=== PATIENT | female | born 2000 | race African-American/Black ===

== ENCOUNTER 2020-03-04 13:13 | Emergency (ER) | payer OTHER ==
[~2020-03-04] VITALS: Ht 160 cm; Wt 54.0 kg
--- NOTE | 2020-03-04 14:01 | PHYS DOC ---
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 EMS states that they started doing CPR at work on her. Patient arrives she is very tearful and she states that she feels that. When she is asked if she feels safe at home she states sometimes. She states sometimes her dad can be mean to her. She denies any kind of abuse. Her mom currently lives in [place] still. She states that she has had the syncopal episodes 2 other times at home. She states that she received her first Covid vaccine this past Sunday. Upon arrival she had so me tingling in her hands that has since gone away. Patient denies any other past medical history. She denies numbness or tingling, headache, vision changes, dizziness, chest pain, shortness of air, urinary symptoms, back pain, extremity pain, joint pain, abdominal pain, nausea, vomiting, diarrhea, fever. She denies any pain at this time. Review of Systems: Review of Systems: Constitutional: Denies fever or chills. [] Eyes: Denies change in visual acuity. [] HENT: Denies nasal congestion or sore throat. [] Respiratory: Denies cough or shortness of breath. [] Cardiovascular: Denies chest pain or edema. [] GI: Denies abdominal pain, nausea, vomiting, bloody stools or diarrhea. [] : Denies dysuria. [] Musculoskeletal: Denies back pain or joint pain. [] Integument: Denies rash. [] Neurologic: Denies headache, focal weakness or sensory changes. + Syncope. + Tingling bilateral hands [] Endocrine: Denies polyuria or polydipsia. [] Lymphatic: Denies swollen glands. [] Psychiatric: Denies depression or anxiety. [] Heart Score: Risk Factors: Risk Factors: DM, Current or recent (<one month) smoker, HTN, HLP, family history of CAD, obesity. Risk Scores: Score 0 - 3: 2.5% MACE over next 6 weeks - Discharge Home Score 4 - 6: 20.3% MACE over next 6 weeks - Admit for Clinical Observation Score 7 - 10: 72.7% MACE over next 6 weeks - Early Invasive Strategies Allergies: Allergies: Allergies Coded Allergies Type Severity Reaction Last Updated Verified No Known Drug Allergies 03/04/20 No Physical Exam: PE: Constitutional: Well developed, well nourished, no acute distress, non-toxic appearance. [] HENT: Normocephalic, atraumatic, bilateral external ears normal, oropharynx moist, no oral exudates, nose normal. [] Eyes: PERRLA, EOMI, conjunctiva normal, no discharge. [] Neck: Normal range of motion, no tenderness, supple, no stridor. [] Cardiovascular:Heart rate regular rhythm, no murmur [] Lungs & Thorax: Bilateral breath sounds clear to auscultation [] Abdomen: Bowel sounds normal, soft, no tenderness, no masses, no pulsatile m asses. [] Skin: Warm, dry, no erythema, no rash. [] Back: No tenderness, no CVA tenderness. [] Extremities: No tenderness, no cyanosis, no clubbing, ROM intact, no edema. [] Neurologic: Alert and oriented X 3, normal motor function, normal sensory function, no focal deficits noted. [] Psychologic: Affect normal, judgement normal, mood normal. Normal physical assessment [] EKG: EK and read by Dr. Smith as sinus rhythm and no STEMI. Radiology/Procedures: Radiology/Procedures: [] Impression: [facility] [address] [place], [place] [id number] IMAGING REPORT Signed PATIENT: MOSHE SERRANO ACCOUNT: [id number] : 2000 LOCATION: ER AGE: 19 SEX: F EXAM STATUS: REG ER ORD. PHYSICIAN: NEL CARDOZA APRN REASON: syncope, fall PROCEDURE: CT HEAD AND CERVICAL SPINE WO CT HEAD AND C-SPINE WO Date: 03/04/2020 2:13 PM Clinical Indication: Reason: syncope, fall / Spl. Instructions: / History: Comparison: None. Technique: 5 mm axial tomographic images were obtained of the head without contrast. These were viewed on brain and bone windows. CT imaging of the cervical spine was performed without contrast. Coronal and sagittal reformatted images were performed. One or more of the following dose reduction techniques were utilized: Automated exposure control (AEC), Adjustment of mA and/or kV according to patient size, Use of iterative reconstruction technique such as ASiR, CT scan done according to ALARA and image gently/image wisely HEAD FINDINGS: The brain parenchyma is normal in attenuation. No intra- or extra-axial mass or fluid collection. No acute hemorrhage. The ventricles are normal in size, shape, and morphology. The bergeron-white matter junction is normal. The basilar cisterns are patent. The visualized paranasal sinuses are normal. The visualized portions of the orbits and globes are normal. The mastoid air cells are clear. No aggressive osseous lesion or fracture. CERVICAL SPINE FINDINGS: Straightening of the cervical lordosis. No acute fracture. No aggressive lytic or blastic osseous lesion. The intervertebral disc heights are maintained. No high-grade spinal canal stenosis or neural foraminal narrowing. The thyroid gland is normal. No cervical lymphadenopathy. The visualized aerodigestive tract is unremarkable. The visualized lung apices are clear. IMPRESSION: 1. No acute intracranial process. 2. No acute osseous abnormality of the cervical spine. Electronically signed by: Nicholas Reyna MD (03/04/2020 2:43 PM) [id number] DICTATED and SIGNED BY: NICHOLAS REYNA MD DATE: 03/04/[id number] [facility] [address] [place] [address] IMAGING REPORT Signed PATIENT: MOSHE SERRANO ACCOUNT: [id number] : 2000 LOCATION: ER AGE: 19 SEX: F EXAM STATUS: PRE ER ORD. PHYSICIAN: NEL CARDOZA APRN REASON: syncope @ work staff began chest compressions on her. PROCEDURE: CHEST PA & LATERAL XR CHEST 2V INDICATION: Reason: syncope @ work staff began chest compressions on her. / Spl. Instructions: / History: . COMPARISON STUDY: None. FINDINGS: Lungs: Normal lung volume. No pulmonary mass or consolidation. The tra cheobronchial tree and hilar structures are normal. Pleura: No pleural effusion or pneumothorax. Heart and Mediastinum: The cardiomediastinal silhouette is normal. The great vessels of the thorax are normal. Bones and Soft Tissues: The bones and soft tissues are within normal limits. IMPRESSION: No acute cardiopulmonary process. Electronically signed by: Nicholas Reyna MD (03/04/2020 2:29 PM) [id number] DICTATED and SIGNED BY: NICHOLAS REYNA MD DATE: 03/04/20 [id number] Course & Med Decision Making: Course & Med Decision Making Pertinent Labs and Imaging studies reviewed. (See chart for details) See HPI. Alert and oriented x4. Ambulatory with a steady gait. Full range of motion of her neck. No focal bony spinal tenderness to her cervical spine, thoracic spine, lumbar spine. No joint or extremity deformity or swelling. Denies any pain. Speaks in full clear sentences. Patient has no complaints this time. PAT team has been consulted to go and talk to the patient. Patient states that she thinks that she has some anxiety but has never been diagnosed with it. She states she is sad because her mother is not here. She states that she is not suicidal or homicidal. Patient states that today she was at work she is feeling lightheaded off and on and would go sit down. She states that she has not ate or drank much today. She states she does not usually eat breakfast. Blood work is unremarkable. Orthostatics are normal. Urinalysis shows dehydration. Patient is given IV fluids in the ED. Patient is educated that she needs to drink plenty of fluids and eat regularly. Orthostatics are laying 111/71, 74; sitting 116/73, 80; standing 114/76, 82. States they were patting the spoken to the patient. Patient is safe to go home she is setting her up with a therapist and [facility]. [] Ifrah Disclaimer: Ifrah Disclaimer: This electronic medical record was generated, in whole or in part, using a voice recognition dictation system. Departure Departure Impression: Primary Impression: Syncope Qualified Codes: R55 - Syncope and collapse Additional Impression: Anxiety Disposition: 01 DC HOME SELF CARE/HOMELESS Condition: STABLE Patient Instructions: Anxiety and Panic Attacks, Syncope Additional Instructions: Follow-up with resources that were given to you. Drink plenty of fluids. Eat regularly. NEL CARDOZA APRN Mar 04, 2020 14:01
[2020-03-04 14:19] LABS: BASO % 1 % (0-3); EOS % 1 % (0-3); HEMATOCRIT 37.3 % (36.0-47.0); HEMOGLOBIN 12.2 g/dL (12.0-15.5); LYMPH % 20 % (24-48); MEAN CORPUSCULAR HEMOGLOBIN 27 pg (25-35); MEAN CORPUSCULAR HGB CONC 33 g/dL (31-37); MEAN CORPUSCULAR VOLUME 82 fL (79-100); MONO # 0.5 x10^3/uL (0.0-1.1); MONO % 10 % (0-9); NEUT # 3.2 x10^3/uL (1.8-7.7); NEUT % 68 % (31-73); PLATELET COUNT 221 x10^3/uL (140-400); RED BLOOD COUNT 4.57 x10^6/uL (3.50-5.40); WHITE BLOOD COUNT 4.7 x10^3/uL (4.0-11.0)
--- NOTE | 2020-03-04 14:31 | RAD ---
XR CHEST 2V INDICATION: Reason: syncope @ work staff began chest compressions on her. / Spl. Instructions: / His tory: . COMPARISON STUDY: None. FINDINGS: Lungs: Normal lung volume. No pulmonary mass or consolidation. The tracheobronchial tree and hilar st ructures are normal. Pleura: No pleural effusion or pneumothorax. Heart and Mediastinum: The cardiomediastinal silhouette is normal. The great vessels of the thorax ar e normal. Bones and Soft Tissues: The bones and soft tissues are within normal limits. IMPRESSION: No acute cardiopulmonary process. Electronically signed by: Geovanny Reyna MD (03/04/2020 2:29 PM) [id number]
[2020-03-04 14:40] LABS: CALCIUM 9.4 mg/dL (8.5-10.1); CREATININE 0.6 mg/dL (0.6-1.0); GFR 154.2; POTASSIUM 4.2 mmol/L (3.5-5.1)
--- NOTE | 2020-03-04 14:45 | RAD ---
CT HEAD AND C-SPINE WO Date: 03/04/2020 2:13 PM Clinical Indication: Reason: syncope, fall / Spl. Instructions: / History: Comparison: None. Technique: 5 mm axial tomographic images were obtained of the head without contrast. These were view ed on brain and bone windows. CT imaging of the cervical spine was performed without contrast. Coron al and sagittal reformatted images were performed. One or more of the following dose reduction techni ques were utilized: Automated exposure control (AEC), Adjustment of mA and/or kV according to patient size, Use of iterative reconstruction technique such as ASiR, CT scan done according to ALARA and im age gently/image wisely HEAD FINDINGS: The brain parenchyma is normal in attenuation. No intra- or extra-axial mass or fluid collection. No acute hemorrhage. The ventricles are normal in size, shape, and morphology. The bergeron-white matter marcia ction is normal. The basilar cisterns are patent. The visualized paranasal sinuses are normal. The visualized portions of the orbits and globes are no rmal. The mastoid air cells are clear. No aggressive osseous lesion or fracture. CERVICAL SPINE FINDINGS: Straightening of the cervical lordosis. No acute fracture. No aggressive lytic or blastic osseous les ion. The intervertebral disc heights are maintained. No high-grade spinal canal stenosis or neural foramin al narrowing. The thyroid gland is normal. No cervical lymphadenopathy. The visualized aerodigestive tract is unrem arkable. The visualized lung apices are clear. IMPRESSION: 1. No acute intracranial process. 2. No acute osseous abnormality of the cervical spine. Electronically signed by: Geovanny Reyna MD (03/04/2020 2:43 PM) [id number]
[2020-03-04 14:46] LABS: ALBUMIN 3.8 g/dL (3.4-5.0); TOTAL BILIRUBIN 0.6 mg/dL (0.2-1.0); TOTAL PROTEIN 7.7 g/dL (6.4-8.2)
[2020-03-04 14:56] VITALS: BP 114/76
[2020-03-04 14:57] LABS: BILIRUBIN,URINE NEGATIVE (NEG); CLARITY,URINE CLEAR; COLOR,URINE YELLOW; NITRITE,URINE NEGATIVE (NEG); PH,URINE 7.5 (<5.0-8.0); PROTEIN,URINE 100 mg/dL (NEG-TRACE)
[2020-03-04 14:58] LABS: BARBITURATES NEG (NEG); BENZODIAZEPINES NEG (NEG); CANNABINOIDS NEG (NEG); COCAINE NEG (NEG); METHADONE NEG (NEG); OPIATES NEG (NEG); PHENCYCLIDINE NEG (NEG)
[2020-03-04 15:01] LABS: AMPHETAMINE/METHAMPHETAMINE NEG (NEG)
[2020-03-04 15:06] LABS: BACTERIA,URINE MANY /HPF (0-FEW)
[2020-03-04 15:07] LABS: RBC,URINE 0 /HPF (0-2)
[2020-03-04] MEDS ORDERED: IV NORMAL SALINE 1000ML BAG 1,000 ML IV ONE (15:15)
== END 2020-03-04 16:56 | disposition home or self-care (01) ==
LOC: ER 13:13
DX: R55 Syncope and collapse (principal); F41.9 Anxiety disorder, unspecified
CPT/HCPCS: 36415; 70450; 71046; 72125; 80053; 80307; 81001; 81025; 84484; 85025; 87086; 93005; 96360; 99285; G0480; J7030

== ENCOUNTER → 2020-06-15 | Outpatient (CLI) | payer OTHER ==
--- NOTE | 2020-06-15 12:16 | RAD ---
Exam Date: 06/15/2020 11:53 AM XR CHEST 2V Indication: Reason: SCREENING-PULMONARY TB / Spl. Instructions: Patient had BCG Vaccine in [place]/unab le to recieve skin test for screening / History: Comparison: March 04, 2020 FINDINGS: The cardiac silhouette and pulmonary vasculature are within normal limits. There is no focal consolidation, pleural effusion or pneumothorax. The visualized osseous structures are intact. IMPRESSION: No acute cardiopulmonary disease. Electronically signed by: Bakari Bourne MD (06/15/2020 12:13 PM) [id number]
== END ==
LOC: RAD 11:36
PROVIDERS: ATTEND Family Medicine
DX: Z11.1 Encounter for screening for respiratory tuberculosis (principal)
CPT/HCPCS: 71046